=== PATIENT | female | born 1955 | race Caucasian/White ===

== ENCOUNTER 2019-09-28 11:19 | Outpatient (CLI) | payer OTHER, SELFPAY ==
--- NOTE | 2019-09-28 11:27 | MM_ITS ---
WS: [id number] BILATERAL SCREENING MAMMOGRAM WITH MARII DISPLACEMENT VIEWS. CAD PERFORMED. HISTORY: SCREENING COMPARISON: 09/05/2018 and 07/27/2017 Bilateral craniocaudal and mediolateral like views are performed. Marii displacement views in CC and MLO projection also performed. Breasts composition: There are scattered areas of fibroglandular density. Implants are intact. No change in the distention of the implants. No suspicious masses or calcificati on. MM/[place] [id number] IMPRESSION: BI-RADS: 2-Benign FOLLOW-UP: 1 Year Follow-up
== END 2019-09-28 11:20 | disposition home or self-care (01) ==
LOC: RADSHAW 11:25
PROVIDERS: PCP Family Medicine; Visit Provider Family Medicine
DX: Z12.31 Encounter for screening mammogram for malignant neoplasm of breast (principal)
CPT/HCPCS: 77067

== ENCOUNTER → 2020-08-20 15:55 | Outpatient (BNVA) | payer OTHER, SELFPAY | PROVIDERS: PCP Family Medicine; Referring Provider Dermatology; Visit Provider Podiatrist Foot & Ankle Surgery | DX: M25.571 Pain in right ankle and joints of right foot (principal); M79.671 Pain in right foot | CPT/HCPCS: 73610; 73630 ==

== ENCOUNTER 2020-08-20 16:47 | Outpatient (CLI) | payer OTHER, SELFPAY | END 2020-08-20 16:48 | disposition home or self-care (01) | LOC: SPT 16:48 | PROVIDERS: PCP Family Medicine; Visit Provider Podiatrist Foot & Ankle Surgery | DX: Z46.89 Encounter for fitting and adjustment of other specified devices (principal); S82.891D Other fracture of right lower leg, subsequent encounter for closed fracture with routine healing; X58.XXXD Exposure to other specified factors, subsequent encounter | CPT/HCPCS: 97760; L4361 ==

== ENCOUNTER → 2020-09-04 12:03 | Outpatient (BNVA) | payer OTHER, SELFPAY | PROVIDERS: PCP Family Medicine; Visit Provider Podiatrist Foot & Ankle Surgery | DX: S82.891A Other fracture of right lower leg, initial encounter for closed fracture (principal); M25.571 Pain in right ankle and joints of right foot; X58.XXXA Exposure to other specified factors, initial encounter | CPT/HCPCS: 73610 ==

== ENCOUNTER → 2020-09-25 15:58 | Outpatient (BNVA) | payer OTHER, SELFPAY | PROVIDERS: PCP Family Medicine; Visit Provider Podiatrist Foot & Ankle Surgery | DX: M25.571 Pain in right ankle and joints of right foot (principal); S82.891A Other fracture of right lower leg, initial encounter for closed fracture; S82.831A Other fracture of upper and lower end of right fibula, initial encounter for closed fracture; M25.371 Other instability, right ankle; X58.XXXA Exposure to other specified factors, initial encounter | CPT/HCPCS: 73610 ==

== ENCOUNTER 2020-09-25 16:26 | Outpatient (CLI) | payer OTHER, SELFPAY | END 2020-09-25 16:27 | disposition home or self-care (01) | LOC: SPT 16:29 | PROVIDERS: PCP Family Medicine; Visit Provider Podiatrist Foot & Ankle Surgery | DX: Z46.89 Encounter for fitting and adjustment of other specified devices (principal); M25.373 Other instability, unspecified ankle | CPT/HCPCS: 97760; L1902 ==

== ENCOUNTER → 2020-10-27 11:22 | Outpatient (BNVA) | payer OTHER, SELFPAY | PROVIDERS: PCP Family Medicine; Visit Provider Podiatrist Foot & Ankle Surgery | DX: S82.831A Other fracture of upper and lower end of right fibula, initial encounter for closed fracture (principal); X58.XXXA Exposure to other specified factors, initial encounter; M25.572 Pain in left ankle and joints of left foot; M79.672 Pain in left foot; M72.2 Plantar fascial fibromatosis | CPT/HCPCS: 73610 ==

== ENCOUNTER 2020-10-30 12:48 | Outpatient (CLI) | payer OTHER, SELFPAY ==
--- NOTE | 2020-10-30 12:57 | MM_ITS ---
WS: [id number] BILATERAL DIGITAL SCREENING MAMMOGRAPHY WITH CAD CLINICAL INFORMATION: SCREENING HISTORY: Screening mammogram. No current complaints. COMPARISON: September 28, 2019 TECHNIQUE: Bilateral CC and MLO views. FINDINGS: Bilateral breast implants. Implants are mammographically intact. Scattered fibroglandular densities bilaterally. No suspicious focal mass, asymmetry, calcifications, or architectural distortion. No evidence of malignancy. MM/[place] [id number] IMPRESSION: BI-RADS: 2-Benign FOLLOW UP: 1 Year Follow-up Recommend return to annual screening mammography.
== END 2020-10-30 12:49 | disposition home or self-care (01) ==
LOC: RADSHAW 12:51
PROVIDERS: PCP Family Medicine; Visit Provider Family Medicine
DX: Z12.31 Encounter for screening mammogram for malignant neoplasm of breast (principal)
CPT/HCPCS: 77067

== ENCOUNTER 2020-11-17 14:29 | Outpatient (CLI) | payer OTHER, SELFPAY ==
--- NOTE | 2020-11-17 14:32 | XR_ITS ---
WS: [id number] SCREENING DEXA SCAN [email or web address] CLINICAL INFORMATION: POST MENOPAUSAL COMPARISON: None. FINDINGS: The L1-L4 bone mineral density measures 0.849 g/cm2. This corresponds to a T score score of -2.8 and Z score of -1.3. Left femoral neck bone mineral density measures 0.772 g/cm2. This corresponds to a T score of -1.9 an d Z score of -0.8. Right femoral neck bone mineral density measures 0.751 g/cm2. This corresponds to a T score -2.0of an d Z score of -1.0. Mean femoral neck bone mineral density measures 0.762 g/cm2. This corresponds to a T score of -2.0 an d Z score of -0.9. XR/XR DEXA axial skeleton* [id number] IMPRESSION: Osteoporosis lumbar spine. Osteopenia femoral necks. Patient's FRAX calculated 10 year probability for major osteoporotic fracture i s 35.8 % and osteoporotic hip fracture is 4.9%.
== END 2020-11-17 14:30 | disposition home or self-care (01) ==
PROVIDERS: PCP Family Medicine; Visit Provider Family Medicine
DX: Z78.0 Asymptomatic menopausal state (principal); M81.0 Age-related osteoporosis without current pathological fracture; M85.862 Other specified disorders of bone density and structure, left lower leg; M85.861 Other specified disorders of bone density and structure, right lower leg
CPT/HCPCS: 77080

== ENCOUNTER 2021-11-02 10:52 | Outpatient (CLI) | payer OTHER, SELFPAY ==
--- NOTE | 2021-11-02 11:00 | MM_ITS ---
WS: [email or web address] VIEWS: MLO and CC views both breasts. 3D digital tomosynthesis is also included in this exam. Breast implant displacement MLO and CC views were also included in the series. Comparison made with prior exam of 07/14/2015, 07/19/2016, 07/27/2017, 09/05/2018, 09/28/2019. 10/30/2020.. Findings: There was no sign of mass, architectural distortion or suspicious calcification in either breast. Int act bilateral breast implants are in place. Stable appearing nodular density in the lateral left [address].Scattered fibroglandular densities MM/[place] [id number] Impression: BI-RADS: 2-Benign FOLLOW-UP: 1 Year Follow-up This mammogram was also analyzed by the Computer Aided Detection System R2 Imag [employer] Distribution Scheme Examiner.
== END 2021-11-02 10:53 | disposition home or self-care (01) ==
LOC: RAD 10:53
PROVIDERS: PCP Family Medicine; Visit Provider Family Medicine
DX: Z12.31 Encounter for screening mammogram for malignant neoplasm of breast (principal)
CPT/HCPCS: 77063; 77067

== ENCOUNTER 2022-11-03 13:43 | Outpatient (CLI) | payer OTHER, SELFPAY ==
--- NOTE | 2022-11-03 14:03 | MM_ITS ---
WS: [id number] Bilateral screening 3D tomosynthesis digital mammogram, 11/03/2022 Clinical Data: SCREENING Comparison: 11/02/2021, 10/30/2020, 09/28/2019, 09/05/2018, 07/27/2017, 07/19/2016, 07/14/2015, 07/05/2014, 06/22, 06/07/2011, 05/21/2010, 05/19/2009, Findings: The breast parenchymal pattern shows fibroglandular tissue. There is a medial nodule seen on the cc v iew of the left breast unchanged. No spiculated masses or clustered calcifications are seen. There ar e no secondary signs of carcinoma. The patient has had bilateral augmentation mammoplasty implants an d they are intact. Impression: 1. Negative bilateral mammogram unchanged. 2. Recommend annual screening mammograms. MM/[place] [id number] BIRADS: 1-Negative FOLLOW UP: 1 Year Follow-up The CAD program checker was used.
== END 2022-11-03 13:44 | disposition home or self-care (01) ==
PROVIDERS: PCP Family Medicine; Visit Provider Physician Assistant
DX: Z12.31 Encounter for screening mammogram for malignant neoplasm of breast (principal)
CPT/HCPCS: 77063; 77067

== ENCOUNTER 2022-11-18 12:56 | Outpatient (CLI) | payer OTHER, SELFPAY ==
--- NOTE | 2022-11-18 13:14 | XR_ITS ---
WS: [id number] DEXA (DUAL ENERGY X-RAY ABSORPTIOMETRY) Bone mineral density was performed using a [employer] machine. HISTORY: POSTMENOPAUSAL COMPARISON: 11/17/2020 Lumbar spine BMD (L1-L4): 0.903 g/cm2 T score: -2.3 Z score: -0.7 Total hip BMD: Left: 0.785 g/cm2. T score: -1.8 Z score: -0.6 Right: 0.767 g/cm2. T score: -1.9 Z score: -0.7 10 year probability of a major osteoporotic fracture is 35.9%. Compared to the prior study from 11/17/2020. Lumbar spine bone mineral density has increased by 6.4%. Bilateral hips bone mineral density has increased by 1.8%. IMPRESSION: OSTEOPENIA based upon the WHO classification for females. Significant increase in bone mineral density within the lumbar spine since the prior study.
== END 2022-11-18 12:57 | disposition home or self-care (01) ==
LOC: RAD 12:57
PROVIDERS: PCP Family Medicine; Visit Provider Nurse Practitioner Family
DX: Z78.0 Asymptomatic menopausal state (principal); M85.80 Other specified disorders of bone density and structure, unspecified site
CPT/HCPCS: 77080

== ENCOUNTER 2023-11-09 11:19 | Outpatient (CLI) | payer MEDICARE, SELFPAY ==
--- NOTE | 2023-11-09 11:22 | MM_ITS ---
WS: [id number] BILATERAL SCREENING DIGITAL BREAST MAMMOGRAPHY WITH MARII DISPLACEMENT VIEWS. CAD PERFORMED. HISTORY: SCREENING COMPARISON: 11/03/2022, 11/02/2021 and 10/30/2020 Bilateral craniocaudal and mediolateral oblique views are performed with tomosynthesis and SM. Marii displacement views in CC and MLO projection also performed. Breasts composition: There are scattered areas of fibroglandular density. Prepectoral implants are intact. No collapse or extravasation. No suspicious masses or calcifications . MM/[place] [id number] IMPRESSION: BI-RADS: 2-Benign FOLLOW-UP: 1 Year Follow-up
== END 2023-11-09 11:20 | disposition home or self-care (01) ==
LOC: RAD 11:19
PROVIDERS: PCP Physician Assistant; Visit Provider Physician Assistant
DX: Z12.31 Encounter for screening mammogram for malignant neoplasm of breast (principal)
CPT/HCPCS: 77063; 77067

== ENCOUNTER 2024-11-09 11:16 | Outpatient (CLI) | payer MEDICARE, BC, SELFPAY ==
--- NOTE | 2024-11-09 11:20 | MM_ITS ---
WS: [email or web address] BILATERAL 3D TOMOSYNTHESIS DIGITAL SCREENING MAMMOGRAPHY WITH CAD CLINICAL INFORMATION: SCREENING HISTORY: Screening mammogram. No current complaints. COMPARISON: 2022 TECHNIQUE: Bilateral CC and MLO views. FINDINGS: Stable bilateral breast implants Scattered fibroglandular densities bilaterally. No suspicious focal mass, asymmetry, calcifications, or architectural distortion. No evidence of malignancy. MM/MM [facility] tomosynthesis [id number] IMPRESSION: DENSITY: There are scattered areas of fibroglandular density. BI-RADS: 2 - Benign. FOLLOW UP: 1 Year Follow-up Recommend return to annual screening mammography.
== END 2024-11-09 11:17 | disposition home or self-care (01) ==
LOC: RAD 11:16
PROVIDERS: PCP Physician Assistant; Visit Provider Physician Assistant
DX: Z12.31 Encounter for screening mammogram for malignant neoplasm of breast (principal); R92.323 Mammographic fibroglandular density, bilateral breasts
CPT/HCPCS: 77063; 77067

== ENCOUNTER 2024-12-07 13:24 | Outpatient (CLI) | payer MEDICARE, BC, SELFPAY ==
--- NOTE | 2024-12-07 13:32 | XR_ITS ---
WS: [email or web address] DEXA (DUAL ENERGY X-RAY ABSORPTIOMETRY) Bone mineral density was performed using a [employer] machine. HISTORY: OSTEOPENIA OF NECK OF BOTH FEMURS BILATERAL COMPARISON: 11/18/2022 Lumbar spine BMD (L1-L4): 0.963 g/cm2 T score: -1.8 Z score: -0.2 Total hip BMD: Left: 0.831 g/cm2. T score: -1.4 Z score: -0.1 Right: 0.818 g/cm2. T score: -1.5 Z score: -0.2 10 year probability of a major osteoporotic fracture is 32.1%. Compared to the prior study from 11/18/2022. Lumbar spine bone mineral density has increased by 6.6%. Bilateral hips bone mineral density has increased by 6.2%. XR/XR DEXA axial skeleton* [id number] IMPRESSION: OSTEOPENIA based upon the WHO classification for females. There has been a sign ificant increase in bone mineral density within the lumbar spine and hips since the prior study.
== END 2024-12-07 13:25 | disposition home or self-care (01) ==
LOC: RAD 13:25
PROVIDERS: PCP Physician Assistant; Visit Provider Physician Assistant
DX: Z13.820 Encounter for screening for osteoporosis (principal); M81.0 Age-related osteoporosis without current pathological fracture; M85.89 Other specified disorders of bone density and structure, multiple sites
CPT/HCPCS: 77080